=== PATIENT | male | born 1995 | race Caucasian/White ===

== ENCOUNTER 2024-04-09 20:03 | Emergency (ER) | payer OTHER, SELFPAY ==
--- NOTE | 2024-04-09 20:08 | ED_ITS ---
HPI - General Adult General Chief complaint: Skin/Abscess/Foreign Body Stated complaint: swelling/redness groin area Time Seen by Provider: 04/09/24 20:41 Source: patient Limitations: no limitations History of Present Illness ED Provider: Sanjuana rizo PA-C HPI narrative: 28-year-old otherwise healthy male presents with penile pain and burning x5 days. Patient states when he urinates, he develops a burning sensation over the shaft and glans of the penis. Patient states he has been experiencing polyuria and polydipsia for weeks, he has also had unintentional weight loss. Denies penile discharge or risk for STD; he has been in a monogamous relationship for years. Denies abdominal pain, nausea vomiting or back pain. Denies scrotal swelling or pain. Related Data Previous Rx's ?Medication ?Instructions ?Recorded metformin 500 mg tablet 500 mg PO BID #60 tabs 04/09/24 Allergies Allergy/AdvReac Type Severity Reaction Status Date / Time No Known Allergies Allergy Unverified 04/09/24 20:10 [No Known Allergies*] Review of Systems 2 Review of Systems: Yes all other systems are reviewed and are negative Constitutional: Constitutional: Denies fatigue and Denies fever(s) Cardiovascular: Cardiovascular: Denies chest pain and Denies dyspnea Respiratory: Respiratory: Denies dyspnea Gastrointestinal: Gastrointestinal: Denies abdominal pain, Denies nausea and Denies vomiting Genitourinary: Genitourinary: Reports dysuria, Denies penile discharge, Denies scrotal swelling and Reports other (Polyuria polydipsia) Endocrine: Endocrine: Denies fatigue PMF Past Medical History Attestation statement: The following information was validated with the patient. Social History Social History Alcohol intake: current Alcohol intake frequency: holidays/special occasions only Physical Exam ED Vital Signs: Vital Signs - 24 hr 04/09/24 20:09 04/09/24 22:18 Temperature 98.4 F 98.3 F Pulse Rate 86 65 Respiratory Rate 18 18 Blood Pressure 140/85 H 122/68 Pulse Oximetry 96 96 Oxygen Delivery Method Room Air Room Air BMI result Body Mass Index 33.3 Const Other: Alert well-appearing Orientation/consciousness: patient oriented x3 Resp Other: Nonlabored respiration Cardio Other: Normal peripheral perfusion Other: The glans penis is mildly chafed, with white discharge noted from the prepuce use, no discharge per urethra, no lesions over the glans penis or shaft, Skin Other: Warm dry no rash Neuro General: patient oriented x3, no focal motor deficits and CN's II-XI intact bilaterally Psych Other: Júnior cooperative Course Course Course Narrative: This is a rapid medical exam performed by Minh Palomo NP: Additional HPI, ROS, PE not included below will be deferred to primary provider. Patient is a 28-year-old male presenting with complaint of penile redness for the past 5 days. Burning with urination. Denies discharge. No new sexual partners. Plan: UA, CT/NG, RPR Medications Administered Discontinued Medications Generic Name Dose Route Start Last Admin Trade Name Frediq PRN Reason Stop Dose Admin Fluconazole 150 mg 04/09/24 21:21 04/09/24 21:40 Fluconazole 150 Mg Tablet PO 04/09/24 21:22 150 mg ONCE ONE Administration Sodium Chloride 1,000 mls @ 999 mls/hr 04/09/24 21:15 04/09/24 22:44 Ns IV 04/09/24 22:15 Infused .Q1H1M LESLIE Infusion Metformin HCl 500 mg 04/09/24 22:05 04/09/24 22:10 Metformin Hcl 500 Mg Tablet PO 04/09/24 22:06 500 mg ONCE ONE Administration Medical Decision Making Medical Decision Making [facility] Narrative: 28-year-old otherwise healthy male presents with penile pain and burning x5 days. Patient states when he urinates, he develops a burning sensation over the shaft and glans of the penis. Patient states he has been experiencing polyuria and polydipsia for weeks, he has also had unintentional weight loss. Denies penile discharge or risk for STD; he has been in a monogamous relationship for years. Denies abdominal pain, nausea vomiting or back pain. Denies scrotal swelling or pain. No underlying chronic issues History: Per patient I have considered the following differential diagnoses: New onset diabetes, HHS, DKA, urethritis, candidal infection, balanitis, Plan: The patient is newly diabetic, point of care sugar was over 300, this fits with this picture of unintentional weight loss with polyuria polydipsia. We will give fluid and screen basic labs to be sure he is not in DKA, doubtful. The patient has a candidal rash, secondary to his diabetes, his urine is not infected, he is simply passing a good amount of sugar. Furthermore, the patient exacerbated this infection he has been using [id number] cortisone. We will give Diflucan, start the patient on metformin, he needs to follow up with Primary care. To note, his assessment began from triage, he was screened for STDs, he will be called with results if they return positive, this is unlikely, his exam was not consistent with an STD. I have independently reviewed the following tests: Labs: No leukocytosis, not anemic, no gap, sugar 334, after fluid 297 Lab Data 04/09/24 21:16 04/09/24 21:16 Labs: Lab Results 04/09/24 04/09/24 04/09/24 Range/Units 20:21 21:03 21:16 WBC 7.7 (4.8-10.8) X10*3/uL RBC 5.29 (4.60-5.80) X10*6/uL Hgb 15.0 (14.0-18.0) g/dl Hct 43.9 (42.0-52.0) % MCV 83.0 (80.0-98.0) fL MCH 28.4 (27.0-33.0) pg MCHC 34.2 (31.0-36.0) g/dl RDW 12.5 (11.0-16.0) % Plt Count 226 (160-400) X10*3/uL MPV 10.4 (9.4-12.4) fL Immature Gran % (Auto) 0.3 (0.0-0.4) % Neut % (Auto) 51.4 (45-73) % Lymph % (Auto) 38.0 (20-40) % [place] % (Auto) 6.1 (2-11) % Eos % (Auto) 3.5 (0-4) % Baso % (Auto) 0.7 (0-2) % Lymph # (Auto) 2.9 (1.2-4.9) X10*3/uL [place] # (Auto) 0.5 (0.1-1.2) X10*3/uL Eos # (Auto) 0.3 (0.0-0.4) X10*3/uL Baso # (Auto) 0.1 (0.0-0.2) X10*3/uL Abs Immat Gran (auto) 0.02 (0.00-0.03) X10*3/uL Absolute Neuts (auto) 3.9 (2.0-8.3) x10*3/uL Absolute Nucleated RBC 0.000 (0.0-0.012) X10*3/uL Nucleated RBC % (auto) 0.0 (0.0-0.2) /100WBC Sodium 137 (135-145) mmol/L Potassium 4.1 (3.3-5.1) mmol/L Chloride 100 (96-108) mmol/L Carbon Dioxide 25 (22-29) mmol/L Anion Gap 16 (12-20) BUN 13 (9-16) mg/dL Creatinine 1.08 (0.5-1.4) mg/dL Estim Creat Clear Calc 128.6 Estimated GFR > 60 POC Glucose 334 H (60-115) mg/dL Random Glucose 342 H (60-115) mg/dL Calcium 9.8 (8.4-10.2) mg/dL Magnesium 2.0 (1.6-2.6) mg/dL Total Bilirubin 0.6 (0.0-1.0) mg/dL AST 57 H (5-37) U/L ALT 132 H (0-40) U/L Alkaline Phosphatase 78 (39-117) U/L Total Protein 8.2 H (6.5-8.0) g/dL Albumin 4.9 (3.5-5.0) g/dL Urine Color Yellow Urine Appearance Clear Urine pH 5.5 (5.0-9.0) Ur Specific [place] >= 1.030 H (1.005-1.025) Urine Protein 30 (1+) H (Neg-Trace) mg/dL Urine Glucose (UA) >=1000 H (Negative) mg/dL Urine Ketones 15 (Negative) mg/dL Urine Blood Negative (Negative) Urine Nitrite Negative (Negative) Ur Leukocyte Esterase Negative (Negative) Urine RBC 0-2 (0-2) /HPF Urine WBC 0-5 (0-5) /HPF Ur Squamous Epith Cells 0-2 (0-2) /HPF Urine Bacteria None Seen (None Seen) Hyaline Casts 0-2 (0-2) /LPF 04/09/24 Range/Units 21:54 WBC (4.8-10.8) X10*3/uL RBC (4.60-5.80) X10*6/uL Hgb (14.0-18.0) g/dl Hct (42.0-52.0) % MCV (80.0-98.0) fL MCH (27.0-33.0) pg MCHC (31.0-36.0) g/dl RDW (11.0-16.0) % Plt Count (160-400) X10*3/uL MPV (9.4-12.4) fL Immature Gran % (Auto) (0.0-0.4) % Neut % (Auto) (45-73) % Lymph % (Auto) (20-40) % [place] % (Auto) (2-11) % Eos % (Auto) (0-4) % Baso % (Auto) (0-2) % Lymph # (Auto) (1.2-4.9) X10*3/uL [place] # (Auto) (0.1-1.2) X10*3/uL Eos # (Auto) (0.0-0.4) X10*3/uL Baso # (Auto) (0.0-0.2) X10*3/uL Abs Immat Gran (auto) (0.00-0.03) X10*3/uL Absolute Neuts (auto) (2.0-8.3) x10*3/uL Absolute Nucleated RBC (0.0-0.012) X10*3/uL Nucleated RBC % (auto) (0.0-0.2) /100WBC Sodium (135-145) mmol/L Potassium (3.3-5.1) mmol/L Chloride (96-108) mmol/L Carbon Dioxide (22-29) mmol/L Anion Gap (12-20) BUN (9-16) mg/dL Creatinine (0.5-1.4) mg/dL Estim Creat Clear Calc Estimated GFR POC Glucose 297 H (60-115) mg/dL Random Glucose (60-115) mg/dL Calcium (8.4-10.2) mg/dL Magnesium (1.6-2.6) mg/dL Total Bilirubin (0.0-1.0) mg/dL AST (5-37) U/L ALT (0-40) U/L Alkaline Phosphatase (39-117) U/L Total Protein (6.5-8.0) g/dL Albumin (3.5-5.0) g/dL Urine Color Urine Appearance Urine pH (5.0-9.0) Ur Specific [place] (1.005-1.025) Urine Protein (Neg-Trace) mg/dL Urine Glucose (UA) (Negative) mg/dL Urine Ketones (Negative) mg/dL Urine Blood (Negative) Urine Nitrite (Negative) Ur Leukocyte Esterase (Negative) Urine RBC (0-2) /HPF Urine WBC (0-5) /HPF Ur Squamous Epith Cells (0-2) /HPF Urine Bacteria (None Seen) Hyaline Casts (0-2) /LPF Discharge Plan Discharge Clinical Impression: Diabetes, Domenica infection Patient Disposition: Home, Self-Care Instructions: Skin Yeast Infection (ED), Diabetes and Nutrition (ED), Diabetes and Exercise (ED), Type 2 Diabetes in Adults: New Diagnosis (ED) Additional Instructions: It is suspicious that you are new diabetic, you need further assessment by primary care in the way of additional labs and management. We are starting you on an oral medication called metformin, take it twice daily as directed. You were found to have a yeast infection involving the genitalia, this is likely secondary to your unknown diagnosis of diabetes. You received an oral medication called Diflucan, you can use topical [id number] products, antifungal creams, to further treat your discomfort. Prescriptions: New metformin 500 mg tablet 500 mg PO BID Qty: 60 0RF Print Language: Slovak
[2024-04-09 20:09] VITALS: BP 140/85; PULSE 86; RESP 18; TEMP 36.9; O2SAT 96; BMI 33.3
[2024-04-09 20:31] LABS: Appearance Urine Clear; Color Urine Yellow; Glucose Urine UA >=1000 mg/dL (Negative); Leukocyte Esterase Urine Negative (Negative); Nitrite Urine Negative (Negative); PH 5.5 (5.0-9.0); Specific Gravity - Urine >= 1.030 (1.005-1.025); UMIC TRIGGER UACC YES; Urine Blood Negative (Negative); Urine Ketones 15 mg/dL (Negative); Urine Protein 30 (1+) mg/dL (Neg-Trace)
[2024-04-09 20:33] LABS: Bacteria Urine None Seen (None Seen); Hyaline Casts Urine 0-2 /LPF (0-2); RBC Urine 0-2 /HPF (0-2); Squamous Epithelial Cell Urine 0-2 /HPF (0-2); WBC Urine 0-5 /HPF (0-5)
[2024-04-09 21:06] LABS: Glucose, Whole Blood 334 mg/dL (60-115)
--- NOTE | 2024-04-09 21:16 | PC.NURSE ---
pt noted to have elevated glucose in urine sample results. pt denies hx of DM. POC obtained by tech displaying 334mg/dL. provider notified/aware. 20gIV placed in the right AC - labs obtained/sent to lab. IVF infusing per provider order. effectiveness pending. will reassess POC s/p infusion. pt otherwise resting in no apparent distress. no sob/wob noted. respirations even/unlabored. plan of care ongoing. call machado placed within reach.
[2024-04-09 21:21] LABS: MANUAL DIFF FLAG NO
[2024-04-09 21:22] LABS: Basophils Absolute Auto 0.1 X10*3/uL (0.0-0.2); Basophils Percent Auto 0.7 % (0-2); Eosinophils Absolute Auto 0.3 X10*3/uL (0.0-0.4); Eosinophils Percent Auto 3.5 % (0-4); Hematocrit 43.9 % (42.0-52.0); Imm Gran Abs Auto 0.02 X10*3/uL (0.00-0.03); Imm Gran Pct Auto 0.3 % (0.0-0.4); Lymphocytes Absolute Auto 2.9 X10*3/uL (1.2-4.9); Mean Corpuscular HGB Conc 34.2 g/dl (31.0-36.0); Mean Corpuscular Hemoglobin 28.4 pg (27.0-33.0); Mean Platelet Volume 10.4 fL (9.4-12.4); Monocytes Absolute Auto 0.5 X10*3/uL (0.1-1.2); Monocytes Percent Auto 6.1 % (2-11); Neutrophils Absolute Auto 3.9 x10*3/uL (2.0-8.3); Neutrophils Percent Auto 51.4 % (45-73); Platelet Count 226 X10*3/uL (160-400); Red Blood Count 5.29 X10*6/uL (4.60-5.80); Red Cell Distribution Width 12.5 % (11.0-16.0); White Blood Count 7.7 X10*3/uL (4.8-10.8)
[2024-04-09 21:39] LABS: Alanine Aminotransferase 132 U/L (0-40); Albumin Level 4.9 g/dL (3.5-5.0); Alkaline Phosphatase 78 U/L (39-117); Anion Gap 16 (12-20); Aspartate Amino Transferase 57 U/L (5-37); Bilirubin Total 0.6 mg/dL (0.0-1.0); Blood Urea Nitrogen 13 mg/dL (9-16); Calcium 9.8 mg/dL (8.4-10.2); Carbon Dioxide 25 mmol/L (22-29); Chloride 100 mmol/L (96-108); Creatinine Clr Calc Pharmacy 128.6; Estimated Glomerular Filt Rate > 60; Glucose Random 342 mg/dL (60-115); Potassium 4.1 mmol/L (3.3-5.1); Sodium 137 mmol/L (135-145); Total Protein 8.2 g/dL (6.5-8.0)
[2024-04-09] MEDS: Fluconazole 150 MG TABLET PO (21:40)
[2024-04-09] MEDS: 0.9 % Sodium Chloride 1,000 ML 999 ML IV (21:42)
--- NOTE | 2024-04-09 21:55 | PC.NURSE ---
repeat POC s/p IVF infusion = 297mg/dL. provider notified/aware.
[2024-04-09 21:59] LABS: Glucose, Whole Blood 297 mg/dL (60-115)
[2024-04-09] MEDS: metFORMIN HCl 500 MG TABLET PO (22:10)
[2024-04-09 22:18] VITALS: BP 122/68; PULSE 65; RESP 18; TEMP 36.8; O2SAT 96
[2024-04-09 23:00] VITALS: BP 122/68; PULSE 65; RESP 18; TEMP 36.8; O2SAT 96
[2024-04-10 03:59] LABS: Syphilis Screen Nonreactive (Nonreactive)
[2024-04-10 06:48] LABS: CT PCR NOT DETECTED (Not Detect.); NG PCR NOT DETECTED (Not Detect.)
== END 2024-04-09 23:02 | disposition home or self-care (01) ==
PROVIDERS: Physician Assistant Medical; Registered Nurse Emergency; Emergency Provider Emergency Medicine
DX: E11.9 Type 2 diabetes mellitus without complications (principal); B37.49 Other urogenital candidiasis
CPT/HCPCS: 36415; 80053; 81001; 82947; 83735; 85025; 86780; 87491; 87591; 96360; 99284